=== PATIENT | female | born 1975 | race American Indian/Alaskan Native ===

== ENCOUNTER 2021-09-27 20:45 | Emergency (ER) | payer MEDICAID, OTHER ==
[2021-09-27] MEDS ORDERED: Sodium Chloride 0.9% 10 ML Syringe FLUSH PRN (21:22)
[2021-09-27] MEDS ORDERED: LORazepam 2 MG/ML SDV IVPUSH ONE (21:23)
[2021-09-27] MEDS ORDERED: Famotidine 20 MG/2 ML SDV IVPUSH ONE (21:23)
[2021-09-27] MEDS ORDERED: Prochlorperazine 10 MG/2 ML SDV IVPUSH ONE (21:23)
== END 2021-09-28 | disposition home or self-care (01) ==
LOC: JP.ED 20:45
DX: F41.9 Anxiety disorder, unspecified (principal); R07.9 Chest pain, unspecified; F43.9 Reaction to severe stress, unspecified; R03.0 Elevated blood-pressure reading, without diagnosis of hypertension; F17.210 Nicotine dependence, cigarettes, uncomplicated; Z88.0 Allergy status to penicillin
CPT/HCPCS: 36415; 80053; 83735; 84484; 85025; 86140; 93005; 96374; 96375; 99285; J0780; J2060; J3490